=== PATIENT | male | born 1940 | race Two or more races ===

== ENCOUNTER 2019-02-19 11:30 | Emergency (ER) | payer OTHER ==
[~2019-02-19] VITALS: Ht 170.2 cm; Wt 81.6 kg
[2019-02-19 12:25] LABS: Basophils # (auto) 0.1 uL; Basophils % (auto) 0.9 % (0.0-2.0); Eosinophils # (auto) 0.2 uL; Eosinophils % (auto) 2.2 % (0.0-7.0); Hematocrit 41.5 % (41.0-53.0); Hemoglobin 14.2 g/dL (13.5-17.5); Lymphocytes # (auto) 1.8 uL; Lymphocytes % (auto) 19.6 % (10.0-50.0); Mean Corpuscular Hemoglobin 30.1 pg (28.0-32.0); Mean Corpuscular Hgb Conc. 34.2 g/dL (32.0-36.0); Mean Corpuscular Volume 88.1 fL (80.0-100.0); Monocytes # (auto) 0.8 uL; Neutrophils # (auto) 6.2 uL; Neutrophils % (auto) 68.3 % (37.0-80.0); Platelet Count (auto) 164 10^3/uL (140-450); Red Blood Cells 4.71 10^6/uL (4.5-5.90); Red Cell Distribution Width 14.5 % (11.8-14.3); White Blood Cell 9.1 10^3/uL (4.4-10.8)
[2019-02-19 12:36] LABS: Albumin 3.2 g/dL (3.4-5.0); Anion Gap 10 (5-15); Blood Urea Nitrogen 20 mg/dL (7-18); Calcium 8.4 mg/dL (8.5-10.1); Carbon Dioxide 23 mmol/L (21-32); Chloride 107 mmol/L (98-107); Glucose 91 mg/dL (74-106); Magnesium 2.5 mg/dL (1.6-2.6); Potassium 3.6 mmol/L (3.5-5.1); Sodium 140 mmol/L (136-145)
[2019-02-19 12:39] LABS: INR 1.02 (0.9-1.15); Partial Thromboplastin Time 27.8 sec (23.78-33.04); Prothrombin Time 10.9 sec (9.27-12.13)
[2019-02-19 12:41] LABS: Alanine Aminotransferase 18 U/L (16-61); Alkaline Phosphatase 52 U/L (45-117); Aspartate Aminotransferase 15 U/L (15-37); BUN/Creatinine Ratio 19.2; Bilirubin, Total 0.4 mg/dL (0.2-1.0); GFR African American 88 mL/min; GFR Non-African American 73 mL/min; Total Protein 6.7 g/dL (6.4-8.2)
[2019-02-19] MEDS ORDERED: LORazepam 0.5 MG TAB PO PRN (14:15)
[2019-02-19] MEDS ORDERED: NITROGLYCERIN 0.4 MG SL TAB SL PRN (14:15)
[2019-02-19] MEDS ORDERED: MORPHINE SULF INJ 2 MG/ML SYRINGE 1ML IV PRN (14:15)
[2019-02-19] MEDS ORDERED: NITROGLYCERIN 0.2MG/HR TOPICAL PATCH TD ONE (14:30)
[2019-02-19] MEDS ORDERED: MEMA10TA PO (15:20)
[2019-02-19] MEDS ORDERED: TRAZ-220 PO (15:20)
[2019-02-19] MEDS ORDERED: IBAN150T PO (15:20)
[2019-02-19] MEDS ORDERED: ESCI10TA PO (15:20)
[2019-02-19] MEDS ORDERED: PRA1C PO (15:20)
[2019-02-19] MEDS ORDERED: SILD20TA PO (15:20)
[2019-02-19] MEDS ORDERED: HYDR-4683 PO (15:20)
[2019-02-19] MEDS ORDERED: RISP0.2512 PO (15:20)
[2019-02-19 20:55] VITALS: BP 129/67
[2019-02-19] MEDS ORDERED: ATORVASTATIN 20 MG TAB PO SCH (22:00)
[2019-02-20] MEDS ORDERED: ASPirin 81 mg TAB PO SCH (10:00)
[2019-02-20] MEDS ORDERED: NITROGLYCERIN 0.2MG/HR TOPICAL PATCH TD SCH (10:00)
== END 2019-02-19 21:05 | disposition short-term general hospital (02) ==
LOC: EDBD 11:30 → ER 11:39
DX: I24.9 Acute ischemic heart disease, unspecified (principal); M19.90 Unspecified osteoarthritis, unspecified site; E78.5 Hyperlipidemia, unspecified; Z79.899 Other long term (current) drug therapy
CPT/HCPCS: 36415; 71045; 80053; 82607; 83735; 83880; 84443; 84484; 85025; 85610; 85730; 93005; 94761; 99291

== ENCOUNTER → 2020-04-25 | Emergency (ER) | payer OTHER ==
[~2020-04-25] VITALS: Ht 170.2 cm; Wt 77.1 kg
[~2020-04-25] MED LIST: ESCI10TA PO; HALOPERIDOL LACTATE 5 MG/ML INJ VIAL IM ONE; HYDR-4833 PO; IBAN1TAB3 PO; LORazepam 2MG/ML-1ML VIAL IV ONE; MEMA10TA PO; PRA1C PO; RISP0.2512 PO; SILD20TA PO; TRAZ-220 PO
[2020-04-25 08:26] LABS: Basophils # (auto) 0.1 10 ^3/uL (0-0.2); Eosinophils # (auto) 0.1 10 ^3/uL (0-0.8); Eosinophils % (auto) 1.1 % (0.0-7.0); Hematocrit 41.5 % (41.0-53.0); Hemoglobin 14.2 g/dL (13.5-17.5); Lymphocytes # (auto) 1.2 10 ^3/uL (0.4-5.4); Mean Corpuscular Hemoglobin 30.6 pg (28.0-32.0); Mean Corpuscular Hgb Conc. 34.1 g/dL (32.0-36.0); Mean Corpuscular Volume 89.6 fL (80.0-100.0); Monocytes # (auto) 0.6 10 ^3/uL (0-1.3); Monocytes % (auto) 9.3 % (0.0-12.0); Neutrophils # (auto) 4.2 10 ^3/uL (1.6-8.6); Neutrophils % (auto) 68.6 % (37.0-80.0); Nucleated Red Blood Cells % 0.1 %; Platelet Count (auto) 140 10^3/uL (140-450); Red Blood Cells 4.63 10^6/uL (4.5-5.90); White Blood Cell 6.1 10^3/uL (4.4-10.8)
[2020-04-25 08:30] VITALS: BP 180/70
[2020-04-25 08:32] LABS: Urine Bacteria NONE SEEN /hpf (None Seen); Urine Blood Negative /uL (Negative); Urine Mucus FEW (None Seen); Urine Specific Gravity 1.025 (1.001-1.035); Urine WBC <1 /hpf (0 - 3)
[2020-04-25 10:14] LABS: Albumin 3.8 g/dL (3.4-5.0); Anion Gap 8 (5-15); Blood Urea Nitrogen 23 mg/dL (7-18); Calcium 8.9 mg/dL (8.5-10.1); Carbon Dioxide 22 mmol/L (21-32); Chloride 112 mmol/L (98-107); Glucose 91 mg/dL (74-106); Potassium 3.8 mmol/L (3.5-5.1); Sodium 142 mmol/L (136-145)
[2020-04-25 10:19] LABS: Alanine Aminotransferase 16 U/L (16-61); Alkaline Phosphatase 56 U/L (45-117); Aspartate Aminotransferase 15 U/L (15-37); BUN/Creatinine Ratio 21.5; Bilirubin, Total 0.6 mg/dL (0.2-1.0); GFR African American 85 mL/min; GFR Non-African American 70 mL/min; Total Protein 7.2 g/dL (6.4-8.2)
== END | disposition home or self-care (01) ==
LOC: ER 03:45
DX: G30.9 Alzheimer's disease, unspecified (principal); F02.80 Dementia in other diseases classified elsewhere, unspecified severity, without behavioral disturbance, psychotic disturbance, mood disturbance, and anxiety; R41.82 Altered mental status, unspecified; E78.5 Hyperlipidemia, unspecified
CPT/HCPCS: 36415; 70450; 71045; 80053; 81001; 82962; 84484; 85025; 96372; 96374; 99285; J1630; J2060

== ENCOUNTER 2021-04-08 09:46 | Emergency (ER) | payer OTHER ==
[~2021-04-08] VITALS: Ht 182.9 cm; Wt 79.4 kg
[~2021-04-08 09:46] MED LIST changes: -HALOPERIDOL LACTATE 5 MG/ML INJ VIAL IM ONE; -LORazepam 2MG/ML-1ML VIAL IV ONE
[2021-04-08] MEDS ORDERED: SODIUM BICARBONATE 8.4% INJ 50ML SYRINGE IV ONE (09:47)
[2021-04-08] MEDS ORDERED: CALCIUM CHLOR(10%) 100MG/ML 10ML SYRINGE IV ONE (09:47)
[2021-04-08] MEDS ORDERED: EPINEPHrine HCL 1 MG/10 ML SYRG IV ONE (09:47)
[2021-04-08 09:55] VITALS: BP 0/0
== END 2021-04-08 09:59 ==
LOC: EDBD 09:46 → ER 09:46
DX: I46.9 Cardiac arrest, cause unspecified (principal); E78.5 Hyperlipidemia, unspecified; Z79.899 Other long term (current) drug therapy
CPT/HCPCS: 31500; 92950; 99285; J0171